=== PATIENT | female | born 1995 | race Caucasian/White ===

== ENCOUNTER 2016-05-05 15:51 | Emergency (ER) | payer BC ==
[2016-05-05 16:03] VITALS: BP 156/71
--- NOTE | 2016-05-05 16:27 | UC ---
Lower Extremity/Ankle HPI - HPI Summary HPI Summary: pt presents with c/o of sudden onset of numbness in bilateral lower extremities beginning at knees and radiating to to toes. Pt denies injury or prior history of back injury or illness. Pt does report that she wqas standing for a long period of time today and that she drank a large amount of alcohol last night as she "went out". Pt states that she is "hungover" - History of Current Complaint Chief Complaint: UCLowerExtremity Stated Complaint: BILATERAL LEG NUMBNESS Hx Obtained From: Patient Hx Last Menstrual Period: 04/23/16 ?: No Onset/Duration: Sudden Onset, Lasting Hours Severity Initially: Mild Severity Currently: Mild Aggravating Factor(s): Nothing Alleviating Factor(s): Nothing Able to Bear Weight: Yes - denies weakness or loss of function - Risk Factors Gout Risk Factors: Negative DVT Risk Factors: Oral Contraceptives - Allergies/Home Medications Allergies/Adverse Reactions: Allergies Allergy/AdvReac Type Severity Reaction Status Date / Time No Known Allergies Allergy Verified 05/05/16 15:56 Home Medications: Home Medications NK [No Home Medications Reported] 05/05/16 [History Confirmed 05/05/16] PMH/Surg Hx/FS Hx/Imm Hx Previously Healthy: Yes - Surgical History Surgical History: Yes Surgery Procedure, Year, and Place: 2006- bunionectomy - Family History Known Family History: Positive: Cardiac Disease - Social History Occupation: Student - at [employer] Alcohol Use: Weekly Alcohol Amount: drank last night Substance Use Type: None Smoking Status (MU): Never Smoked Tobacco Review of Systems Constitutional: Negative Skin: Negative Eyes: Negative ENT: Negative Respiratory: Negative Cardiovascular: Negative Gastrointestinal: Negative Genitourinary: Negative Motor: Other - "numbness" bilateral lower extremities from knee to toes beginning at knees and radiating to toes Neurovascular: Negative Musculoskeletal: Other: - paresthesia Neurological: Paresthesia Psychological: Negative All Other Systems Reviewed And Are Negative: Yes Physical Exam Triage Information Reviewed: Yes Appearance: Well-Appearing Vital Signs: Initial Vital Signs Temp 99.9 F 05/05/16 15:57 Pulse 93 05/05/16 15:57 Resp 18 05/05/16 15:57 BP 156/71 05/05/16 15:57 Pulse Ox 100 05/05/16 15:57 Vital Signs Reviewed: Yes Eye Exam: Normal Eyes: Positive: Other: - PERRLA ENT Exam: Normal Dental Exam: Normal Neck exam: Normal Neck: Positive: Supple, Nontender, No Lymphadenopathy Respiratory Exam: Normal Cardiovascular Exam: Normal Abdominal Exam: Normal Musculoskeletal Exam: Normal Neurological Exam: Normal Neurological: Positive: Alert, Muscle Tone Normal Psychological Exam: Normal Skin Exam: Normal Lower Extremity Course/Dx - Differential Dx/Diagnosis Differential Diagnosis/HQI/PQRI: Other - guillain barre Provider Diagnoses: paraesthsias. lower leg pain Discharge - Discharge Plan Condition: Stable Disposition: HOME Patient Education Materials: Paresthesia (ED), Leg Pain (ED) Referrals: [facility] [place] [facility] [Outside] Additional Instructions: Please follow up with your PCP or return to clinic as needed. Please monitor your symptoms and seek medical care in a timely manner if they worsen.
== END 2016-05-05 16:48 | disposition home or self-care (01) ==
LOC: UCCORT 15:51
DX: M79.662 Pain in left lower leg (principal); M79.661 Pain in right lower leg; R20.2 Paresthesia of skin; R03.0 Elevated blood-pressure reading, without diagnosis of hypertension
CPT/HCPCS: 99201; G0463